=== PATIENT | male | born 1975 | race Caucasian/White ===

== ENCOUNTER 2021-07-22 15:49 | Emergency (ER) | payer OTHER ==
[~2021-07-22] VITALS: Ht 182.9 cm; Wt 111.1 kg
[2021-07-22 16:21] VITALS: BP 153/84
--- NOTE | 2021-07-22 18:23 | NUR ---
45 Y/O MALE BIB SELF. C/O PAIN TO LEFT SHOULDER (ABCESS W/ REDNESS AND SWELLING), PAIN AND REDNESS TO MEDIAL RIGHT KNEE AND RIGH CALF. SYPTOMS APPEARED 2-3 S/P HIKING. PAIN RADIATES UP HIS RIGHT LEG (06/17). -FEVER, -N/V/D, -CP, -SOB. PT WAS BROUGHT TO BED BY WHEEL CHAIR. PT IS ABLE TO AMBULATE BUT CAUSES "EXCRUTIATING PAIN." PT IS SITTING IN BED SEMI FOWLERS WITH RAIL UP X1 IN LOWEST SETTING. HX: DMX2, NEUROPATHY, HTN NKDA MEDS: METFORMIN, GLIPIZIDE, AMLODIPINE,METHADONE, HYDROCHLOROTHIAZIDE, OZEMPIC
[2021-07-22] MEDS ORDERED: IBUPROFEN 600 MG TAB PO ONE (18:50)
--- NOTE | 2021-07-22 19:16 | NUR ---
TRANSFER OF CARE REPORT GIVEN TO ISABELLA
--- NOTE | 2021-07-22 19:16 | NUR ---
Patient appears to be resting comfortably in bed. Vital Signs within normal limits. Respirations even and unlabored.
--- NOTE | 2021-07-22 19:26 | NUR ---
PT SITTING IN BED LOCKED IN LOWEST POSITION W X2 SIDERAILS UP FOR PT SAFETY. PT CONNECTED TO MONITOR W VSS. GLUCOSE 301, ERMD MADE AWARE. XRAY AT BEDSIDE. BREATHING EVEN AND UNLABORED. NAD NOTED, WILL CONTINUE TO MONITOR.
[2021-07-22 19:33] LABS: BASOPHILS % (AUTO) 0.2 % (0.0-2.0); EOSINOPHILS # (AUTO) 0.1 K/uL (0-0.4); EOSINOPHILS % (AUTO) 1.3 % (0.0-4.0); HEMATOCRIT 38.3 % (36-52); HEMOGLOBIN 12.3 g/dL (12.0-18.0); LYMPHOCYTES # (AUTO) 1.7 K/uL (2.0-11.5); MEAN CORPUSCULAR HEMOGLOBIN 24 pg (27-31); MEAN CORPUSCULAR HGB CONC 32 g/dL (33-37); MEAN CORPUSCULAR VOLUME 75.2 fL (80-94); MONOCYTES # (AUTO) 0.9 K/uL (0.8-1.0); MONOCYTES % (AUTO) 8.8 % (1.7-9.3); NEUTROPHILS # (AUTO) 7.6 K/uL (1.8-7.7); NEUTROPHILS % (AUTO) 73.7 % (42.2-75.2); PLATELET COUNT (AUTO) 268 K/uL (140-450); RED BLOOD CELL COUNT(AUTO) 5.09 MIL/uL (4.20-6.10); RED CELL DISTRIBUTION WIDTH 16.8 % (11.6-13.7); WHITE BLOOD COUNT (AUTO) 10.4 K/uL (4.8-10.8)
[2021-07-22 19:41] LABS: ANION GAP 11.3 (8-16); CARBON DIOXIDE 29.9 mmol/L (21-32); CREATININE 0.8 mg/dL (0.6-1.3); POTASSIUM 4.2 mmol/L (3.5-5.1)
[2021-07-22] MEDS ORDERED: NACL 0.9% 1,000 ML IV ONE ×2 (20:15→20:30)
[2021-07-22] MEDS ORDERED: AMPICILLIN/SULBACTAM 3 GM VIAL IM ONE (20:30)
[2021-07-22] MEDS ORDERED: CEPH-588 PO (20:37)
[2021-07-22] MEDS ORDERED: SULF-59 PO (20:38)
[2021-07-22 21:22] VITALS: BP 134/81
--- NOTE | 2021-07-22 21:22 | NUR ---
Patient discharged with v/s stable. Written and verbal after care instructions given and explained. Patient alert, oriented and verbalized understanding of instructions. Ambulatory with steady gait. All questions addressed prior to discharge. ID band removed. Patient advised to follow up with PMD. Rx of BACTRIM, KEFLEX given. Patient educated on indication of medication including possible reaction and side effects. Opportunity to ask questions provided and answered.
== END 2021-07-22 21:22 | disposition home or self-care (01) ==
LOC: MED 15:49
DX: L08.89 Other specified local infections of the skin and subcutaneous tissue (principal); F19.10 Other psychoactive substance abuse, uncomplicated; L53.9 Erythematous condition, unspecified; E11.9 Type 2 diabetes mellitus without complications; Z79.2 Long term (current) use of antibiotics
CPT/HCPCS: 36415; 73020; 73560; 80048; 85025; 85651; 86140; 96372; 99285; J0295; Q0092